=== PATIENT | female | born 1945 | race Caucasian/White ===

== ENCOUNTER 2019-11-07 10:06 | Emergency (ER) | payer MEDICARE, OTHER ==
[2019-11-07] MEDS ORDERED: Fluorescein Sodium TOPICAL* 1 MG TEST STRIP OPHTHALMIC ONE (10:39)
--- NOTE | 2019-11-07 10:40 | UC ---
Eye Complaint HPI - HPI Summary HPI Summary: 74 year old female presents with LEFT eye watery drainage and swelling around eye that started last night. Denies any associated visual disturbance, fever, chills nor other uri sx. Denies eye pain. - History of Current Complaint Chief Complaint: UCEye Stated Complaint: LEFT EYE Time Seen by Provider: 11/07/19 10:24 Hx Obtained From: Patient Onset/Duration: Sudden Onset, Lasting Days - one Pain Intensity: 0 Associated Signs And Symptoms: Positive: Drainage (Clear), Swelling - left lower eyelid. Negative: Vision Impairment Bilateral, Fever - Risk Factors Penetrating Injury Risk Factor: Negative Globe Rupture Risk Factors: Negative Acute Glaucoma Risk Factors: Negative Optic Artery Occlusion Risk Factors: Negative - Allergies/Home Medications Allergies/Adverse Reactions: Allergies Allergy/AdvReac Type Severity Reaction Status Date / Time naproxen [From Aleve] Allergy Hives Verified 11/07/19 10:26 Penicillins Allergy Rash Verified 11/07/19 10:26 Home Medications: Home Medications Anastrozole [Arimidex] 1 mg DAILY 11/07/19 [History Confirmed 11/07/19] Aspirin [Aspirin EC] 1 tab DAILY 11/07/19 [History Confirmed 11/07/19] PMH/Surg Hx/FS Hx/Imm Hx Previously Healthy: Yes - Surgical History Surgical History: Yes Surgery Procedure, Year, and Place: RIGHT lumpectomy. LEFT ankle plate and 10 screws - Family History Known Family History: Positive: Non-Contributory - Social History Alcohol Use: Rare Substance Use Type: None Smoking Status (MU): Never Smoked Tobacco Review of Systems All Other Systems Reviewed And Are Negative: Yes Constitutional: Positive: Negative Skin: Positive: Rash - redness below left eye Eyes: Positive: Drainage - clear, eye was crusted when she awoke this morning., Eye Redness, Other - lower eye lid swelling.. Negative: Blurred Vision, Diplopia, Photophobia ENT: Negative: Epistaxis, Sore Throat, Ear Ache, Nasal Discharge, Sinus Congestion Respiratory: Positive: Negative Cardiovascular: Positive: Negative Gastrointestinal: Positive: Negative Genitourinary: Positive: Negative Motor: Positive: Negative Neurovascular: Positive: Negative Musculoskeletal: Positive: Negative Neurological: Positive: Negative Is Patient Immunocompromised?: No Physical Exam Triage Information Reviewed: Yes Appearance: Well-Appearing Vital Signs: Initial Vital Signs Temp 98.3 F 11/07/19 10:27 Pulse 82 11/07/19 10:27 Resp 16 11/07/19 10:27 BP 134/77 11/07/19 10:27 Pulse Ox 99 11/07/19 10:27 Eyes: Positive: Conjunctiva Inflamed, Discharge - clear, no foreign body identified. No abrasion on cornea nor sclera with fluoroscein stain., Other: - mild erythema and swelling left lower eyelid ENT: Positive: Normal ENT inspection Neck: Positive: Supple, Nontender, No Lymphadenopathy Respiratory: Positive: Lungs clear, Normal breath sounds Cardiovascular: Positive: RRR, No Murmur Abdomen Description: Positive: Nontender, Soft Musculoskeletal Exam: Normal Neurological Exam: Normal Psychological Exam: Normal Skin Exam: Normal Eye Complaint Course/Dx - Differential Dx/Diagnosis Differential Diagnosis/HQI/PQRI: Corneal Abrasion, Foreign Body Provider Diagnosis: Conjunctivitis Discharge ED - Sign-Out/Discharge Documenting (check all that apply): Patient Departure All imaging exams completed and their final reports reviewed: No Studies - Discharge Plan Condition: Stable Disposition: HOME Prescriptions: Polymyx/Trimethoprim OPTH* [Polytrim OPHTH*] 1 drop LEFT EYE Q4H 7 Days #1 btl Patient Education Materials: Conjunctivitis (ED) Referrals: No Primary Care Phys,NOPCP [Primary Care Provider] - Additional Instructions: Follow up with an Ophthomologist if your symptoms persist or worsen or if you develop any problems with your vision. - Billing Disposition and Condition Condition: STABLE Disposition: Home
== END 2019-11-07 11:10 | disposition home or self-care (01) ==
LOC: UCCORT 10:06
DX: H10.9 Unspecified conjunctivitis (principal); Z88.0 Allergy status to penicillin; Z88.6 Allergy status to analgesic agent; Z79.82 Long term (current) use of aspirin
CPT/HCPCS: 99202; A9270-GY; G0463